=== PATIENT | female | born 1990 | race Caucasian/White ===

== ENCOUNTER 2021-05-08 12:18 | Inpatient (IN) | payer OTHER ==
[~2021-05-08 12:18] MED LIST: Bupivacaine 0.25% 10 ML SDV ONE; ePHEDrine 50 MG/ML SDV ONE
[2021-05-08] MEDS ORDERED: ePHEDrine 50 MG/ML SDV IVPUSH PRN (12:23)
[2021-05-08] MEDS ORDERED: diphenhydrAMINE 50 MG/ML SDV IVPUSH PRN (12:23)
[2021-05-08] MEDS ORDERED: Bupivacaine/fentaNYL/NS 100 ML Bag EPIDUR PRN (12:23)
[2021-05-08] MEDS ORDERED: fentaNYL 100 MCG/2 ML SDV EPIDUR PRN (12:23)
[2021-05-08] MEDS ORDERED: Ondansetron 4 MG/2 ML SDV IVPUSH PRN (12:52)
[2021-05-08] MEDS ORDERED: Nalbuphine 10 MG/1 ML Vial IVPUSH PRN (12:52)
[2021-05-08] MEDS ORDERED: Sodium Chloride 0.9% 10 ML Syringe FLUSH PRN (12:52)
[2021-05-08] MEDS ORDERED: Calcium Carbonate 500 MG Tab.Chew PO PRN (12:52)
[2021-05-08] MEDS ORDERED: Oxytocin/Lactated Ringers 10 UNIT/1,000 ML BAG IV SCH ×2 (13:00)
[2021-05-08] MEDS: Lactated Ringers 1,000 ML IV SCH ×2 (13:12→14:22)
--- NOTE | 2021-05-08 15:51 | PCM.PREANE ---
Preanesthetic Assessment - Procedure Proposed Procedure: Epidural - Anesthesia/Transfusion/Family Hx Anesthesia History: Prior Anesthesia Without Reaction Family History of Anesthesia Reaction: No Transfusion History: No Prior Transfusion(s) - Review of Systems General: Fatigue Pulmonary: No Symptoms Cardiovascular: No Symptoms Gastrointestinal: Abdominal Pain (labor) Neurological: No Symptoms Other: Reports: None - Physical Assessment Vital Signs: Last Vital Signs Temp 36.5 C 05/08/21 12:23 Pulse 110 H 05/08/21 12:23 Resp 16 05/08/21 12:23 BP 114/70 05/08/21 12:23 Pulse Ox 100 05/08/21 12:23 Height: 1.68 m Weight: 67.132 kg ASA Class: 2 Mental Status: Alert & Oriented x3 Airway Class: Mallampati = 1 Dentition: Reports: Normal Dentition Thyro-Mental Finger Breadths: 3 Mouth Opening Finger Breadths: 3 ROM/Head Extension: Full Lungs: Clear to Auscultation, Normal Respiratory Effort Cardiovascular: Regular Rate, Regular Rhythm - Lab Values: Laboratory Last Values WBC 4.45 K/mm3 (3.98-10.04) 05/08/21 12:52 RBC 3.11 M/mm3 (3.98-5.22) L 05/08/21 12:52 Hgb 9.4 gm/dl (11.2-15.7) L 05/08/21 12:52 Hct 30.3 % (34.1-44.9) L 05/08/21 12:52 MCV 97.4 fl (79.4-94.8) H D 05/08/21 12:52 MCH 30.2 pg (25.6-32.2) 05/08/21 12:52 MCHC 31.0 g/dl (32.2-35.5) L 05/08/21 12:52 RDW Std Deviation 47.3 fL (36.4-46.3) H 05/08/21 12:52 Plt Count 159 K/mm3 (182-369) L 05/08/21 12:52 MPV 10.4 fl (9.4-12.3) 05/08/21 12:52 Neut % (Auto) 75.8 % (34.0-71.1) H 05/08/21 12:52 Lymph % (Auto) 14.6 % (19.3-51.7) L 05/08/21 12:52 [place] % (Auto) 8.8 % (4.7-12.5) 05/08/21 12:52 Eos % (Auto) 0.4 (0.7-5.8) L 05/08/21 12:52 Baso % (Auto) 0.2 % (0.1-1.2) 05/08/21 12:52 Neut # (Auto) 3.37 K/mm3 (1.56-6.13) 05/08/21 12:52 Lymph # (Auto) 0.65 K/mm3 (1.18-3.74) L 05/08/21 12:52 [place] # (Auto) 0.39 K/mm3 (0.24-0.36) H 05/08/21 12:52 Eos # (Auto) 0.02 K/mm3 (0.04-0.36) L 05/08/21 12:52 Baso # (Auto) 0.01 K/mm3 (0.01-0.08) 05/08/21 12:52 SARS-CoV-2 RNA (PAULETTE) Negative (NEGATIVE) 05/08/21 12:50 Blood Type B NEGATIVE 05/08/21 13:41 Gel Antibody Screen Positive 05/08/21 13:41 - Allergies Allergies/Adverse Reactions: Allergies Allergy/AdvReac Type Severity Reaction Status Date / Time No Known Allergies Allergy Verified 03/27/21 12:25 - Anesthesia Plan Pre-Op Medication Ordered: None - Acknowledgements Anesthesia Type Planned: Epidural Pt an Appropriate Candidate for the Planned Anesthesia: Yes Alternatives and Risks of Anesthesia Discussed w Pt/Guardian: Yes Pt/Guardian Understands and Agrees with Anesthesia Plan: Yes PreAnesthesia Questionnaire - Past Health History Medical/Surgical History: Denies Medical/Surgical History Gastrointestinal History: Reports: GERD 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 - SUBSTANCE USE Tobacco Use Status *Q: Never Tobacco User Second Hand Smoke Exposure: No Recreational Drug Use History: No - HOME MEDS Home Medications: Home Meds Nitrofurantoin Monohyd/M-Cryst [Macrobid 100 mg Capsule] 100 mg PO Q12HR #14 capsule 03/27/21 [Rx] - CURRENT (IN HOUSE) MEDS Current Meds: Current Medications Calcium Carbonate/Glycine (Calcium Carbonate 500 Mg Tab.Chew) 1,000 mg PO Q2H PRN PRN Reason: Indigestion Diphenhydramine HCl (Diphenhydramine 50 Mg/Ml Sdv) 25 mg IVPUSH Q6H PRN PRN Reason: pruritis Ephedrine Sulfate (Ephedrine 50 Mg/Ml Sdv) 5 mg IVPUSH ASDIRECTED PRN PRN Reason: Hypotension Fentanyl (Fentanyl 100 Mcg/2 Ml Sdv) 100 mcg EPIDUR Q3H PRN PRN Reason: Pain Last Admin: 05/08/21 15:23 Dose: 100 mcg Documented by: Fentanyl/Bupivacaine HCl (Bupivacaine/Fentanyl/Ns 100 Ml Bag) 100 ml EPIDUR ASDIRECTED PRN PRN Reason: Pain Stop: 05/10/21 23:00 Last Admin: 05/08/21 15:24 Dose: 100 ml Documented by: Lactated Ringer's (Ringers, Lactated) 1,000 mls @ 100 mls/hr IV ASDIRECTED NICOL Last Admin: 05/08/21 14:22 Dose: 100 mls/hr Documented by: Oxytocin/Lactated Ringer's (Pitocin In Lr 10 Units/1,000 Ml) 10 unit in 1,000 mls @ 100 mls/hr IV .CONTINUOUS NICOL Oxytocin/Lactated Ringer's (Pitocin In Lr 10 Units/1,000 Ml) 10 unit in 1,000 mls @ 12 mls/hr IV TITRATE NICOL; Protocol Last Titration: 05/08/21 14:59 Dose: 7 munits/min, 42 mls/hr Documented by: Nalbuphine HCl (Nalbuphine 10 Mg/1 Ml Vial) 10 mg IVPUSH Q2H PRN PRN Reason: Pain Ondansetron HCl (Ondansetron 4 Mg/2 Ml Sdv) 4 mg IVPUSH Q4H PRN PRN Reason: Nausea/Vomiting Sodium Chloride (Sodium Chloride 0.9% 10 Ml Syringe) 10 ml FLUSH ASDIRECTED PRN PRN Reason: Keep Vein Open
--- NOTE | 2021-05-08 22:15 | PCM.LDHP ---
L&D History of Present Illness - General Date of Service: 05/08/21 Admit Problem/Dx: Patient Status Order with Admit Dx/Problem 05/08/21 12:52 Patient Status [ADT] Routine Admission Diagnosis/Problem Admission Diagnosis/Problem Source of Information: Patient History Limitations: Reports: No Limitations - History of Present Illness Introduction:: 30 year old at 40w5 presents for induction of labor. 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 Social & Family History - Family History Family Medical History: No Pertinent Family History - Tobacco Use Tobacco Use Status *Q: Never Tobacco User Second Hand Smoke Exposure: No - Caffeine Use Caffeine Use: Reports: None - Recreational Drug Use Recreational Drug Use: No H&P Review of Systems - Review of Systems: Review Of Systems: See Below General: Reports: No Symptoms HEENT: Reports: No Symptoms Pulmonary: Reports: No Symptoms Cardiovascular: Reports: No Symptoms Gastrointestinal: Reports: No Symptoms Genitourinary: Reports: No Symptoms Musculoskeletal: Reports: No Symptoms Skin: Reports: No Symptoms Psychiatric: Reports: No Symptoms Neurological: Reports: No Symptoms Hematologic/Lymphatic: Reports: No Symptoms Immunologic: Reports: No Symptoms L&D Exam - Exam Exam: See Below - Vital Signs Vital Signs: Last Vital Signs Temp 36.5 C 05/08/21 12:23 Pulse 110 H 05/08/21 12:23 Resp 16 05/08/21 12:23 BP 114/70 05/08/21 12:23 Pulse Ox 100 05/08/21 12:23 Weight: 67.132 kg - OB Specific Contraction Intensity: Moderate to Strong Movement: Active Heart Tones: Present Heart Rate (FHR) Variability: Moderate (6-25 bpm) Presentation: Vertex - Watkins Score Watkins Score Cervix Position: Midposition Watkins Score Consistency: Soft Watkins Score Effacement: 51-70% Watkins Score Dilation: 3-4 cm Watkins Score Infant's Station: -2 Watkins Score Total: 8 - Exam General: Alert, Oriented HEENT: PERRLA, Conjunctiva Clear, EACs Clear, EOMI, Hearing Intact, Mucosa Moist & Sweet Water, Nares Patent, Normal Nasal Septum, Posterior Pharynx Clear, TMs Clear Neck: Supple, Trachea Midline Lungs: Clear to Auscultation, Normal Respiratory Effort Cardiovascular: Regular Rate, Regular Rhythm GI/Abdominal Exam: Normal Bowel Sounds, Soft, Non-Tender, No Organomegaly, No Distention, No Abnormal Bruit, No Mass, Pelvis Stable Back Exam: Normal Inspection, Full Range of Motion Extremities: Normal Inspection, Normal Range of Motion, Non-Tender, No Pedal Edema, Normal Capillary Refill Skin: Warm, Dry, Intact Neurological: Cranial Nerves Intact, Reflexes Equal Bilateral Psychiatric: Alert, Normal Affect, Normal Mood - Patient Data Lab Results Last 24 hrs: Laboratory Results - last 24 hr 05/08/21 05/08/21 05/08/21 Range/Units 12:50 12:52 13:41 WBC 4.45 (3.98-10.04) K/mm3 RBC 3.11 L (3.98-5.22) M/mm3 Hgb 9.4 L (11.2-15.7) gm/dl Hct 30.3 L (34.1-44.9) % MCV 97.4 H D (79.4-94.8) fl MCH 30.2 (25.6-32.2) pg MCHC 31.0 L (32.2-35.5) g/dl RDW Std Deviation 47.3 H (36.4-46.3) fL Plt Count 159 L (182-369) K/mm3 MPV 10.4 (9.4-12.3) fl Neut % (Auto) 75.8 H (34.0-71.1) % Lymph % (Auto) 14.6 L (19.3-51.7) % [place] % (Auto) 8.8 (4.7-12.5) % Eos % (Auto) 0.4 L (0.7-5.8) Baso % (Auto) 0.2 (0.1-1.2) % Neut # (Auto) 3.37 (1.56-6.13) K/mm3 Lymph # (Auto) 0.65 L (1.18-3.74) K/mm3 [place] # (Auto) 0.39 H (0.24-0.36) K/mm3 Eos # (Auto) 0.02 L (0.04-0.36) K/mm3 Baso # (Auto) 0.01 (0.01-0.08) K/mm3 SARS-CoV-2 RNA (PAULETTE) Negative (NEGATIVE) Blood Type B NEGATIVE Gel Antibody Screen Positive Result Diagrams: 05/08/21 12:52 Problem List Initiated/Reviewed/Updated: Yes Orders Last 24hrs: Active Orders 24 hr Category Date Time Status Patient Status [ADT] Routine ADT 05/08/21 12:52 Active Activity as Tolerated [RC] PFP Care 05/08/21 12:52 Active Communication Order [RC] ASDIRECTED Care 05/08/21 12:23 Active Communication Order [RC] ASDIRECTED Care 05/08/21 12:52 Active Cooling Warming Measures [RC] ASDIRECTED Care 05/08/21 12:23 Active Non Stress Test [RC] PER UNIT ROUTINE Care 05/08/21 12:52 Active Notify Provider [RC] ASDIRECTED Care 05/08/21 12:23 Active Notify Provider [RC] ASDIRECTED Care 05/08/21 12:23 Active Notify Provider [RC] PFP Care 05/08/21 12:52 Active Notify Provider [RC] PRN Care 05/08/21 12:52 Active Oxygen Therapy [RC] ASDIRECTED Care 05/08/21 12:23 Active Peripheral IV Care [RC] . DIRECTED Care 05/08/21 12:53 Active Pulse Oximetry [RC] ASDIRECTED Care 05/08/21 12:23 Active Pump Management, Intrathecal [RC] ASDIRECTED Care 05/08/21 12:52 Active Urinary Catheter Assessment [RC] ASDIRECTED Care 05/08/21 12:52 Active Vital Signs [RC] PER UNIT ROUTINE Care 05/08/21 12:23 Active Vital Signs [RC] PER UNIT ROUTINE Care 05/08/21 12:52 Active Regular Diet [DIET] Diet 05/08/21 Lunch Active ANTIBODY IDENTIFICATION [BBK] Stat Lab 05/08/21 13:41 Results RAPID PLASMA REAGIN,RPR [CHEM] Routine Lab 05/08/21 12:52 Ordered TYPE AND SCREEN [BBK] Stat Lab 05/08/21 13:41 Results Bupivacaine/fentaNYL/NS [fentaNYL/Bupivacaine/NS 2 MCG- Med 05/08/21 12:23 Active 0.125% 100 ML] 100 ml EPIDUR ASDIRECTED PRN Calcium Carbonate [Tums] Med 05/08/21 12:52 Active 1,000 mg PO Q2H PRN Lactated Ringers [Ringers, Lactated] 1,000 ml Med 05/08/21 13:00 Active IV ASDIRECTED Nalbuphine [Nubain] Med 05/08/21 12:52 Active 10 mg IVPUSH Q2H PRN Ondansetron [Zofran] Med 05/08/21 12:52 Active 4 mg IVPUSH Q4H PRN Oxytocin/Lactated Ringers [Pitocin in LR 10 Units/1,000 Med 05/08/21 13:00 Active ML] 10 unit in 1,000 ml IV .CONTINUOUS Oxytocin/Lactated Ringers [Pitocin in LR 10 Units/1,000 Med 05/08/21 13:00 Active ML] 10 unit in 1,000 ml IV TITRATE Sodium Chloride 0.9% [Saline Flush] Med 05/08/21 12:52 Active 10 ml FLUSH ASDIRECTED PRN diphenhydrAMINE [Benadryl] Med 05/08/21 12:23 Active 25 mg IVPUSH Q6H PRN ePHEDrine [ePHEDrine sulfate] Med 05/08/21 12:23 Active 5 mg IVPUSH ASDIRECTED PRN fentaNYL [Sublimaze] Med 05/08/21 12:23 Active 100 mcg EPIDUR Q3H PRN Electronic Heart Tones Ext w TOCO [WOMSER] Oth 05/08/21 12:52 Ordered Routine Electronic Heart Tones Internal [WOMSER] Per Unit Oth 05/08/21 12:52 Ordered Routine Peripheral IV Insertion Adult [OM.PC] Routine Oth 05/08/21 12:52 Ordered Resuscitation Status Routine Resus Stat 05/08/21 12:52 Ordered Medication Orders Calcium Carbonate/Glycine (Calcium Carbonate 500 Mg Tab.Chew) 1,000 mg PO Q2H PRN PRN Reason: Indigestion Diphenhydramine HCl (Diphenhydramine 50 Mg/Ml Sdv) 25 mg IVPUSH Q6H PRN PRN Reason: pruritis Ephedrine Sulfate (Ephedrine 50 Mg/Ml Sdv) 5 mg IVPUSH ASDIRECTED PRN PRN Reason: Hypotension Fentanyl (Fentanyl 100 Mcg/2 Ml Sdv) 100 mcg EPIDUR Q3H PRN PRN Reason: Pain Last Admin: 05/08/21 15:23 Dose: 100 mcg Documented by: XIAO Fentanyl/Bupivacaine HCl (Bupivacaine/Fentanyl/Ns 100 Ml Bag) 100 ml EPIDUR ASDIRECTED PRN PRN Reason: Pain Stop: 05/10/21 23:00 Last Admin: 05/08/21 15:24 Dose: 100 ml Documented by: XIAO Lactated Ringer's (Ringers, Lactated) 1,000 mls @ 100 mls/hr IV ASDIRECTED NICOL Last Admin: 05/08/21 14:22 Dose: 100 mls/hr Documented by: Infusion: 05/08/21 14:22 Dose: 100 mls/hr Documented by: Admin: 05/08/21 13:12 Dose: 100 mls/hr Documented by: XIAO Oxytocin/Lactated Ringer's (Pitocin In Lr 10 Units/1,000 Ml) 10 unit in 1,000 mls @ 100 mls/hr IV .CONTINUOUS NICOL Oxytocin/Lactated Ringer's (Pitocin In Lr 10 Units/1,000 Ml) 10 unit in 1,000 mls @ 12 mls/hr IV TITRATE NICOL; Protocol Last Titration: 05/08/21 19:20 Dose: 6 munits/min, 36 mls/hr Documented by: Titration: 05/08/21 18:11 Dose: 4 munits/min, 24 mls/hr Documented by: Titration: 05/08/21 16:33 Dose: 2 munits/min, 12 mls/hr Documented by: [id number] Titration: 05/08/21 15:15 Dose: 6 munits/min, 36 mls/hr Documented by: [id number] Titration: 05/08/21 14:59 Dose: 7 munits/min, 42 mls/hr Documented by: [id number] Titration: 05/08/21 14:17 Dose: 6 munits/min, 36 mls/hr Documented by: [id number] Titration: 05/08/21 13:51 Dose: 4 munits/min, 24 mls/hr Documented by: [id number] Admin: 05/08/21 13:13 Dose: 2 munits/min, 12 mls/hr Documented by: [id number] Nalbuphine HCl (Nalbuphine 10 Mg/1 Ml Vial) 10 mg IVPUSH Q2H PRN PRN Reason: Pain Ondansetron HCl (Ondansetron 4 Mg/2 Ml Sdv) 4 mg IVPUSH Q4H PRN PRN Reason: Nausea/Vomiting Sodium Chloride (Sodium Chloride 0.9% 10 Ml Syringe) 10 ml FLUSH ASDIRECTED PRN PRN Reason: Keep Vein Open Assessment/Plan Comment:: Term induction. Pitocin. AROM prn. Epidural prn. Anticipate
--- NOTE | 2021-05-08 22:23 | PCM.SN.2 ---
- Free Text/Narrative Note: Stage I - Patient presented for induction of labor. Pitocin. Epidural AROM clear fluid. Progressed to complete. Stage II - of viable female, weight 8#2oz, APGARS 7/9 at 2153. Head delivered in controlled manner over intact perineum. Shoulder dystocia of 40 seconds resolved with cynthia, suprapubic and delivery of posterior arm resultant from hand presentation. Body followed atraumatically. To maternal abdomen. Positive cry. Stage III - of intact placenta. 3vc. 2nd degree laceration repaired with 3-0 vicryl. EBL 300
[2021-05-08] MEDS ORDERED: Benzocaine/Menthol 20%-0.5% Spray 78 GM Cannister TOP PRN (22:46)
[2021-05-08] MEDS ORDERED: Witch Hazel Medicated Pads 40/Jar TOP PRN (22:46)
[2021-05-09] MEDS: Ibuprofen 600 MG Tab PO PRN ×4 (00:20→21:51)
--- NOTE | 2021-05-09 03:25 | PCM.PNPP ---
- General Info Date of Service: 05/09/21 Functional Status: Reports: Pain Controlled - Review of Systems General: Reports: No Symptoms HEENT: Reports: No Symptoms Pulmonary: Reports: No Symptoms Cardiovascular: Reports: No Symptoms Gastrointestinal: Reports: No Symptoms Genitourinary: Reports: No Symptoms Musculoskeletal: Reports: No Symptoms Skin: Reports: No Symptoms Neurological: Reports: No Symptoms Psychiatric: Reports: No Symptoms - General Info Date of Service: 05/09/21 - Patient Data Vital Signs - Most Recent: Last Vital Signs Temp 36.5 C 05/08/21 12:23 Pulse 110 H 05/08/21 12:23 Resp 16 05/08/21 12:23 BP 114/70 05/08/21 12:23 Pulse Ox 100 05/08/21 12:23 Weight - Most Recent: 67.132 kg I&O - Last 24 Hours: Intake & Output 05/08/21 05/08/21 05/09/21 14:59 22:59 06:59 Output Total 1000 140 Balance -1000 -140 Lab Results - Last 24 Hours: Laboratory Results - last 24 hr 05/08/21 05/08/21 05/08/21 Range/Units 12:50 12:52 13:41 WBC 4.45 (3.98-10.04) K/mm3 RBC 3.11 L (3.98-5.22) M/mm3 Hgb 9.4 L (11.2-15.7) gm/dl Hct 30.3 L (34.1-44.9) % MCV 97.4 H D (79.4-94.8) fl MCH 30.2 (25.6-32.2) pg MCHC 31.0 L (32.2-35.5) g/dl RDW Std Deviation 47.3 H (36.4-46.3) fL Plt Count 159 L (182-369) K/mm3 MPV 10.4 (9.4-12.3) fl Neut % (Auto) 75.8 H (34.0-71.1) % Lymph % (Auto) 14.6 L (19.3-51.7) % [place] % (Auto) 8.8 (4.7-12.5) % Eos % (Auto) 0.4 L (0.7-5.8) Baso % (Auto) 0.2 (0.1-1.2) % Neut # (Auto) 3.37 (1.56-6.13) K/mm3 Lymph # (Auto) 0.65 L (1.18-3.74) K/mm3 [place] # (Auto) 0.39 H (0.24-0.36) K/mm3 Eos # (Auto) 0.02 L (0.04-0.36) K/mm3 Baso # (Auto) 0.01 (0.01-0.08) K/mm3 SARS-CoV-2 RNA (PAULETTE) Negative (NEGATIVE) Blood Type B NEGATIVE Gel Antibody Screen Positive Med Orders - Current: Current Medications Benzocaine/Menthol (Benzocaine/Menthol 20%-0.5% [place] 78 Gm Cannister) 0 gm TOP ASDIRECTED PRN PRN Reason: Perineal Comfort Measure Last Admin: 05/09/21 00:18 Dose: 1 can Documented by: Ibuprofen (Ibuprofen 600 Mg Tab) 600 mg PO Q6H PRN PRN Reason: Pain Last Admin: 05/09/21 00:20 Dose: 600 mg Documented by: Cristin Harvey (Cristin Harvey Medicated Pads 40/Jar) 1 pad TOP ASDIRECTED PRN PRN Reason: Perineal Comfort Measure Last Admin: 05/09/21 00:17 Dose: 1 tub Documented by: Discontinued Medications Calcium Carbonate/Glycine (Calcium Carbonate 500 Mg Tab.Chew) 1,000 mg PO Q2H PRN PRN Reason: Indigestion Diphenhydramine HCl (Diphenhydramine 50 Mg/Ml Sdv) 25 mg IVPUSH Q6H PRN PRN Reason: pruritis Ephedrine Sulfate (Ephedrine 50 Mg/Ml Sdv) 5 mg IVPUSH ASDIRECTED PRN PRN Reason: Hypotension Fentanyl (Fentanyl 100 Mcg/2 Ml Sdv) 100 mcg EPIDUR Q3H PRN PRN Reason: Pain Last Admin: 05/08/21 15:23 Dose: 100 mcg Documented by: Fentanyl/Bupivacaine HCl (Bupivacaine/Fentanyl/Ns 100 Ml Bag) 100 ml EPIDUR ASDIRECTED PRN PRN Reason: Pain Stop: 05/10/21 23:00 Last Admin: 05/08/21 15:24 Dose: 100 ml Documented by: Lactated Ringer's (Ringers, Lactated) 1,000 mls @ 100 mls/hr IV ASDIRECTED NICOL Last Admin: 05/08/21 14:22 Dose: 100 mls/hr Documented by: Oxytocin/Lactated Ringer's (Pitocin In Lr 10 Units/1,000 Ml) 10 unit in 1,000 mls @ 100 mls/hr IV .CONTINUOUS NICOL Oxytocin/Lactated Ringer's (Pitocin In Lr 10 Units/1,000 Ml) 10 unit in 1,000 mls @ 12 mls/hr IV TITRATE NICOL; Protocol Last Titration: 05/08/21 19:20 Dose: 6 munits/min, 36 mls/hr Documented by: Nalbuphine HCl (Nalbuphine 10 Mg/1 Ml Vial) 10 mg IVPUSH Q2H PRN PRN Reason: Pain Ondansetron HCl (Ondansetron 4 Mg/2 Ml Sdv) 4 mg IVPUSH Q4H PRN PRN Reason: Nausea/Vomiting Sodium Chloride (Sodium Chloride 0.9% 10 Ml Syringe) 10 ml FLUSH ASDIRECTED PRN PRN Reason: Keep Vein Open - Infant Interaction Support Person: - Exam General: Alert, Oriented HEENT: Pupils Equal Neck: Supple Lungs: Clear to Auscultation, Normal Respiratory Effort Cardiovascular: Regular Rate, Regular Rhythm GI/Abdominal Exam: Normal Bowel Sounds, Soft, Non-Tender, No Organomegaly, No Distention, No Abnormal Bruit Extremities: Normal Inspection, Normal Range of Motion, Non-Tender, No Pedal Edema, Normal Capillary Refill Neurological: No New Focal Deficit Psy/Mental Status: Alert, Normal Affect, Normal Mood - Problem List Review Problem List Initiated/Reviewed/Updated: Yes - My Orders Last 24 Hours: My Active Orders 05/08/21 Lunch Regular Diet [DIET] 05/08/21 12:52 Patient Status [ADT] Routine Resuscitation Status Routine 05/08/21 13:41 ANTIBODY IDENTIFICATION [BBK] Stat TYPE AND SCREEN [BBK] Stat 05/08/21 22:46 Benzocaine/Menthol [Dermoplast Pain Relief 20%-0.5% [place]] See Dose Instructions TOP ASDIRECTED PRN witch Katrina [Tucks] 1 pad TOP ASDIRECTED PRN Heat Therapy [OM.PC] PRN 05/08/21 22:46 Activity as Tolerated [RC] PER UNIT ROUTINE Vital Signs [RC] 03,09,, Assess Lochia [WOMSER] Per Unit Routine Assess Uterine Involution [WOMSER] Per Unit Routine Breast Pump [WOMSER] Per Unit Routine Medication Administration Instruction [OM.PC] Routine Perineal Care [OM.PC] Per Unit Routine Sitz Bath [OM.PC] Per Unit Routine 05/09/21 00:04 Ibuprofen [Motrin] 600 mg PO Q6H PRN 05/09/21 07:00 RHOGAM, [RHIG WORKUP, ] [BBK] Routine 05/09/21 22:46 Heat Therapy [OM.PC] PRN - Assessment Assessment:: PPD1 No issues. Resting well
--- NOTE | 2021-05-09 09:18 | PCM48HPAN ---
Post Anesthesia Note - EVALUATION WITHIN 48HRS OF ANESTHETIC Vital Signs in Normal Range: Yes Patient Participated in Evaluation: Yes Respiratory Function Stable: Yes Airway Patent: Yes Cardiovascular Function Stable: Yes Hydration Status Stable: Yes Pain Control Satisfactory: Yes Nausea and Vomiting Control Satisfactory: Yes Mental Status Recovered: Yes Vital Signs: Last Vital Signs Temp 37.3 C 05/09/21 04:41 Pulse 79 05/09/21 04:41 Resp 14 05/09/21 04:41 BP 120/61 05/09/21 04:41 Pulse Ox 100 05/09/21 04:41
[2021-05-10] MEDS: Ibuprofen 600 MG Tab PO PRN (03:45)
--- NOTE | 2021-05-10 07:03 | PCM.DCSUM1 ---
Discharge Summary - Hospital Course Diagnosis: Stroke: No - Discharge Data Discharge Date: 05/10/21 Discharge Disposition: Home, Self-Care 01 Condition: Good - Referral to Home Health Primary Care Physician: Lisa Joyce MD - Patient Summary/Data Hospital Course: Stage I - Patient presented for induction of labor. Pitocin. Epidural AROM clear fluid. Progressed to complete. Stage II - of viable female, weight 8#2oz, APGARS 7/9 at 2153. Head delivered in controlled manner over intact perineum. Shoulder dystocia of 40 seconds resolved with cynthia, suprapubic and delivery of posterior arm resultant from hand presentation. Body followed atraumatically. To maternal abdomen. Positive cry. Stage III - of intact placenta. 3vc. 2nd degree laceration repaired with 3-0 vicryl. EBL 300 - Patient Instructions Diet: Usual Diet as Tolerated Activity: No Strenuous Activities Activity, Other: pelvic rest Driving: May Drive Today Showering/Bathing: May Shower Notify Provider of: Fever, Increased Pain, Swelling and Redness, Drainage, Nausea and/or Vomiting - Discharge Plan *PRESCRIPTION DRUG MONITORING PROGRAM REVIEWED*: No *COPY OF PRESCRIPTION DRUG MONITORING REPORT IN PATIENT MALIKA: No Home Medications: Home Meds Nitrofurantoin Monohyd/M-Cryst [Macrobid 100 mg Capsule] 100 mg PO Q12HR #14 capsule 03/27/21 [Rx] Referrals: Lisa Joyce MD [Primary Care Provider] - (2 weeks) - Discharge Summary/Plan Comment DC Time >30 min.: No Total # of Minutes for Discharge Time: 15 - General Info Date of Service: 05/10/21 Functional Status: Reports: Pain Controlled - Review of Systems General: Reports: No Symptoms HEENT: Reports: No Symptoms Pulmonary: Reports: No Symptoms Cardiovascular: Reports: No Symptoms Gastrointestinal: Reports: No Symptoms Genitourinary: Reports: No Symptoms Musculoskeletal: Reports: No Symptoms Skin: Reports: No Symptoms Neurological: Reports: No Symptoms Psychiatric: Reports: No Symptoms - Patient Data Vitals - Most Recent: Last Vital Signs Temp 36.2 C 05/10/21 03:48 Pulse 73 05/10/21 03:48 Resp 13 05/10/21 03:48 BP 89/57 L 05/10/21 03:48 Pulse Ox 98 05/10/21 03:48 Weight - Most Recent: 67.132 kg I&O - Last 24 hours: Intake & Output 05/09/21 05/10/21 05/10/21 22:59 06:59 14:59 Intake Total 2 Balance 2 Lab Results - Last 24 hrs: Laboratory Results - last 24 hr 05/08/21 05/09/21 Range/Units 13:41 06:53 Blood Type Cancelled Gel Antibody Screen Cancelled Antibody Identification Anti-D Screen 0 ros/5 flds - neg RhIG Candidate? Yes Rhogam Indicated Cancelled Med Orders - Current: Current Medications Benzocaine/Menthol (Benzocaine/Menthol 20%-0.5% [place] 78 Gm Cannister) 0 gm TOP ASDIRECTED PRN PRN Reason: Perineal Comfort Measure Last Admin: 05/09/21 00:18 Dose: 1 can Documented by: Ibuprofen (Ibuprofen 600 Mg Tab) 600 mg PO Q6H PRN PRN Reason: Pain Last Admin: 05/10/21 03:45 Dose: 600 mg Documented by: Cristin Harvey (Cristin Harvey Medicated Pads 40/Jar) 1 pad TOP ASDIRECTED PRN PRN Reason: Perineal Comfort Measure Last Admin: 05/09/21 00:17 Dose: 1 tub Documented by: Discontinued Medications Bupivacaine HCl (Bupivacaine 0.25% 10 Ml Sdv) 10 ml .ROUTE .STK-MED ONE Stop: 05/08/21 12:01 Calcium Carbonate/Glycine (Calcium Carbonate 500 Mg Tab.Chew) 1,000 mg PO Q2H PRN PRN Reason: Indigestion Diphenhydramine HCl (Diphenhydramine 50 Mg/Ml Sdv) 25 mg IVPUSH Q6H PRN PRN Reason: pruritis Ephedrine Sulfate (Ephedrine 50 Mg/Ml Sdv) 5 mg IVPUSH ASDIRECTED PRN PRN Reason: Hypotension Ephedrine Sulfate (Ephedrine 50 Mg/Ml Sdv) 50 mg .ROUTE .STK-MED ONE Stop: 05/08/21 12:01 Fentanyl (Fentanyl 100 Mcg/2 Ml Sdv) 100 mcg EPIDUR Q3H PRN PRN Reason: Pain Last Admin: 05/08/21 15:23 Dose: 100 mcg Documented by: Fentanyl/Bupivacaine HCl (Bupivacaine/Fentanyl/Ns 100 Ml Bag) 100 ml EPIDUR ASDIRECTED PRN PRN Reason: Pain Stop: 05/10/21 23:00 Last Admin: 05/08/21 15:24 Dose: 100 ml Documented by: Lactated Ringer's (Ringers, Lactated) 1,000 mls @ 100 mls/hr IV ASDIRECTED NICOL Last Admin: 05/08/21 14:22 Dose: 100 mls/hr Documented by: Oxytocin/Lactated Ringer's (Pitocin In Lr 10 Units/1,000 Ml) 10 unit in 1,000 mls @ 100 mls/hr IV .CONTINUOUS NICOL Oxytocin/Lactated Ringer's (Pitocin In Lr 10 Units/1,000 Ml) 10 unit in 1,000 mls @ 12 mls/hr IV TITRATE NICOL; Protocol Last Titration: 05/08/21 19:20 Dose: 6 munits/min, 36 mls/hr Documented by: Nalbuphine HCl (Nalbuphine 10 Mg/1 Ml Vial) 10 mg IVPUSH Q2H PRN PRN Reason: Pain Ondansetron HCl (Ondansetron 4 Mg/2 Ml Sdv) 4 mg IVPUSH Q4H PRN PRN Reason: Nausea/Vomiting Sodium Chloride (Sodium Chloride 0.9% 10 Ml Syringe) 10 ml FLUSH ASDIRECTED PRN PRN Reason: Keep Vein Open - Exam HEENT: Reports: Pupils Equal, Pupils Reactive, EOMI, Mucous Membr. Moist/Bells Neck: Reports: Supple Lungs: Reports: Clear to Auscultation, Normal Respiratory Effort Cardiovascular: Reports: Regular Rate, Regular Rhythm GI/Abdominal Exam: Normal Bowel Sounds, Soft, Non-Tender, No Organomegaly, No Distention, No Abnormal Bruit, No Mass Rectal (Female) Exam: Normal Exam, Normal Rectal Tone Back Exam: Reports: Normal Inspection, Full Range of Motion Extremities: Normal Inspection, Normal Range of Motion, Non-Tender, No Pedal Edema, Normal Capillary Refill Skin: Reports: Warm, Dry, Intact Wound/Incisions: Reports: Healing Well Neurological: Reports: No New Focal Deficit Psy/Mental Status: Reports: Alert, Normal Affect, Normal Mood
== END 2021-05-10 14:00 | disposition home or self-care (01) | DRG 807 ==
LOC: UNDOADMOB 12:18 → JD.OB 12:18 → OBSVTOIN 21:53 → UNDOADMOB 21:53 → JD.OB 21:54 → INTOOBSV 22:32 → OBSVTOIN 22:32
PROVIDERS: ADMIT Obstetrics & Gynecology; ATTEND Obstetrics & Gynecology
PROC: 10E0XZZ Delivery of Products of Conception, External Approach (ICD-10-PCS; principal; 2021-05-08)
PROC: 0KQM0ZZ Repair Perineum Muscle, Open Approach (ICD-10-PCS; 2021-05-08)
PROC: 10907ZC Drainage of Amniotic Fluid, Therapeutic from Products of Conception, Via Natural or Artificial Opening (ICD-10-PCS; 2021-05-08)
PROC: 3E033VJ Introduction of Other Hormone into Peripheral Vein, Percutaneous Approach (ICD-10-PCS; 2021-05-08)
PROC: 3E0R3BZ Introduction of Anesthetic Agent into Spinal Canal, Percutaneous Approach (ICD-10-PCS; 2021-05-08)
PROC: 3E0334Z Introduction of Serum, Toxoid and Vaccine into Peripheral Vein, Percutaneous Approach (ICD-10-PCS; 2021-05-09)
DX: O48.0 Post-term pregnancy (principal); Z37.0 Single live birth; O66.0 Obstructed labor due to shoulder dystocia; Z3A.40 40 weeks gestation of pregnancy; O26.893 Other specified pregnancy related conditions, third trimester; Z67.21 Type B blood, Rh negative; Z20.822 Contact with and (suspected) exposure to COVID-19
CPT/HCPCS: 01967; 36415; 51702; 59025; 59409; 85025; 85461; 86850; 86870; 86900; 86901; A9270-GY; J2590; J2790; J3010; J3490; J7120; U0002

== ENCOUNTER 2022-10-04 20:27 | Emergency (ER) | payer BC, OTHER ==
[2022-10-04] MEDS ORDERED: cefTRIAXone 1 GM, Lidocaine 1% 2.1 ML IM ONE ×2 (20:52)
== END 2022-10-04 21:30 | disposition home or self-care (01) ==
LOC: JD.ED 20:27
DX: L03.211 Cellulitis of face (principal)
CPT/HCPCS: 96372; 99283; J0696; 99282; J3490